=== PATIENT | female | born 1985 | race Hispanic/Latino ===

== ENCOUNTER 2018-11-03 10:04 | Day surgery (SDC) | payer OTHER ==
[2018-11-02 11:33] VITALS: BMI 34.5
[2018-11-03] MEDS ORDERED: PROPOFOL 200 MG/20 ML VIAL ONE (13:07)
--- NOTE | 2018-11-03 14:15 | OP ---
DATE OF PROCEDURE: 11/03/2018 PRIMARY CARE PHYSICIAN: Zay Ball MD DESKTOP SUPPORT ENGINEER SURGEON: None. PROCEDURE PERFORMED: Surveillance colonoscopy. INDICATION: A 33-year-old woman with a history of colon polyps. She had a colonoscopy in 2016 with a sessile serrated adenoma removed at that time. MEDICATIONS: See Anesthesia record. FINDINGS: After discussion of the risks, benefits, and alternatives of the procedure, informed consent was obtained and witnessed. Pre-endoscopic cardiopulmonary examination was satisfactory. Time-out was performed before sedation was achieved. Sedation was achieved with Anesthesia assistance in the endoscopy unit. Digital rectal exam was performed, which was unremarkable. A Pentax adult colonoscope was inserted into the anus and passed forward to the cecum in the usual fashion. The cecal base was identified by the appendiceal orifice as well as ileocecal valve. The terminal ileum was intubated and the ileal mucosa appeared normal with prominent submucosal lymphoid follicles. The colonoscope was then slowly withdrawn in a gradual and circumferential manner with careful examination of the entire colonic mucosa. The quality of the prep was good. Retroflexion in the right colon was also performed. The entire colonic mucosa appeared normal throughout. There was no evidence of any polyps or mass lesions or other mucosal abnormalities. Retroflexion in the rectum was unremarkable. The colonoscope was completely withdrawn and the patient allowed to recover. The patient tolerated the procedure well. There were no immediate postprocedure complications. IMPRESSION: Normal colonoscopy to the terminal ileum. RECOMMENDATION: 1. Repeat colonoscopy for surveillance at a 5 year interval, given her history of sessile serrated adenoma removed at an early age in 2016. 2. Follow up in the GI clinic as needed, particularly diarrhea symptoms were to recur. Job ID: [id number]
== END 2018-11-03 14:20 | disposition home or self-care (01) ==
LOC: SDC 10:04
PROVIDERS: ATTEND Internal Medicine
PROC: 0DJD8ZZ Inspection of Lower Intestinal Tract, Via Natural or Artificial Opening Endoscopic (ICD-10-PCS; principal; 2018-11-03)
DX: Z12.11 Encounter for screening for malignant neoplasm of colon (principal); K21.9 Gastro-esophageal reflux disease without esophagitis; K52.9 Noninfective gastroenteritis and colitis, unspecified; Z86.010 Personal history of colon polyps; Z91.018 Allergy to other foods